=== PATIENT | male | born 1965 | race Hispanic/Latino ===

== ENCOUNTER 2020-11-05 04:58 | Emergency (ER) | payer BC ==
[~2020-11-05] VITALS: Ht 175.3 cm; Wt 90.7 kg
[2020-11-05 05:06] VITALS: BP 148/103
[2020-11-05 06:44] LABS: BASOPHILS % (AUTO) 0.5 % (0.0-5.0); EOSINOPHILS % (AUTO) 3.2 % (0.0-8.0); HEMATOCRIT 41.3 % (42-54); LYMPHOCYTES % (AUTO) 30.3 % (21.0-51.0); MEAN CORPUSCULAR HEMOGLOBIN 32.1 pg (27.0-33.0); MEAN CORPUSCULAR HGB CONC 34.1 g/dL (32.0-36.0); MEAN CORPUSCULAR VOLUME 94.1 fL (79-99); MONOCYTES % (AUTO) 9.5 % (3.0-13.0); NEUTROPHILS % (AUTO) 56.3 % (40.0-77.0); PLATELET COUNT (AUTO) 171 K/uL (130-400); RED BLOOD CELL COUNT(AUTO) 4.39 MIL/uL (4.50-6.20); RED CELL DISTRIBUTION WIDTH 13.2 % (11.0-15.5)
[2020-11-05 06:58] LABS: ALANINE AMINOTRANSFERASE 27 U/L (12-78); ALBUMIN 3.9 g/dL (3.5-5.0); ASPARTATE AMINOTRANSFERASE 12 U/L (10-37); BILIRUBIN,TOTAL 0.9 mg/dL (0.2-1.0); CARBON DIOXIDE 30 mmol/L (21-32); CHLORIDE 107 mmol/L (101-111); CREATININE 1.1 mg/dL (0.5-1.5); GLOMERULAR FILTR. RATE CALC 74 mL/min (>60); GLUCOSE,RANDOM 98 mg/dL (70-105); POTASSIUM 3.8 mmol/L (3.5-5.1); SODIUM SERUM 141 mmol/L (136-145); TOTAL PROTEIN, SERUM 6.9 g/dL (6.0-8.3); UREA NITROGEN, BLOOD 18 mg/dL (7-18); URIC ACID 5.2 mg/dL (2.6-7.2)
[2020-11-05 08:02] LABS: CRP QUANTITATIVE < 2.00 mg/L (0.00-9.0)
[2020-11-05] MEDS ORDERED: NAPR500T6 PO (08:09)
[2020-11-05] MEDS: KETOROLAC 60 MG VIAL (30MG/ML) IM ONE (08:35)
[2020-11-05] MEDS: ACETAMINOPHEN 500 MG TABLET PO ONE (08:36)
[2020-11-05 08:47] VITALS: BP 133/65
== END 2020-11-05 08:54 | disposition home or self-care (01) ==
LOC: EDH 04:58
DX: M17.12 Unilateral primary osteoarthritis, left knee (principal); M76.9 Unspecified enthesopathy, lower limb, excluding foot; Z90.49 Acquired absence of other specified parts of digestive tract
CPT/HCPCS: 36415; 73564; 80053; 84550; 85025; 86140; 96372; 99284; J1885

== ENCOUNTER 2022-03-17 20:30 | Emergency (ER) | payer BC ==
[~2022-03-17] VITALS: Ht 175.3 cm; Wt 90.7 kg
[~2022-03-17 20:30] MED LIST: NAPR500T6 PO
[2022-03-17 21:43] LABS: BASOPHILS % (AUTO) 0.6 % (0.0-5.0); EOSINOPHILS % (AUTO) 3.2 % (0.0-8.0); HEMATOCRIT 42.7 % (42-54); LYMPHOCYTES % (AUTO) 33.3 % (21.0-51.0); MEAN CORPUSCULAR HEMOGLOBIN 32.3 pg (27.0-33.0); MEAN CORPUSCULAR HGB CONC 35.4 g/dL (32.0-36.0); MEAN CORPUSCULAR VOLUME 91.4 fL (79-99); MONOCYTES % (AUTO) 9.7 % (3.0-13.0); NEUTROPHILS % (AUTO) 52.9 % (40.0-77.0); PLATELET COUNT (AUTO) 215 K/uL (130-400); RED BLOOD CELL COUNT(AUTO) 4.67 MIL/uL (4.50-6.20); RED CELL DISTRIBUTION WIDTH 12.6 % (11.0-15.5); WHITE BLOOD COUNT (AUTO) 7.7 K/uL (4.8-10.8)
[2022-03-17 21:55] LABS: CREATININE 1.3 mg/dL (0.5-1.5); POTASSIUM 3.6 mmol/L (3.5-5.1)
[2022-03-17 22:05] LABS: ALBUMIN 4.2 g/dL (3.5-5.0); TOTAL PROTEIN, SERUM 7.7 g/dL (6.0-8.3)
[2022-03-17] MEDS ORDERED: ASPIRIN 81MG CHEW TAB PO ONE (22:30)
[2022-03-17] MEDS ORDERED: NITROGLYCERIN 0.4 MG SL TAB SL PRN (22:30)
[2022-03-18] MEDS ORDERED: 0.9%NACL 1000ML 2,000 ML IV ONE ×2 (00:10→00:30)
[2022-03-18 02:02] VITALS: BP 128/87
[2022-03-18 02:29] LABS: APPEARANCE,URINE CLEAR (CLEAR); BILIRUBIN,URINE NEGATIVE (NEGATIVE); COLOR,URINE LIGHT-YELLOW (YELLOW); GLUCOSE, URINE (UA) NEGATIVE (NEGATIVE); KETONES,URINE NEGATIVE (NEGATIVE); LEUKOCYTE ESTERASE ,URINE NEGATIVE Leu/uL (NEGATIVE); NITRATE,URINE NEGATIVE (NEGATIVE); OCCULT BLOOD,URINE NEGATIVE (NEGATIVE); PH,URINE 5.5 (5.0-8.0); PROTEIN,URINE NEGATIVE (NEGATIVE); UROBILINOGEN,URINE 0.2 mg/dL (0.2-1.0)
[2022-03-18] MEDS ORDERED: ONDANSETRON 4MG TABLET PO PRN (02:30)
[2022-03-18] MEDS ORDERED: ACETAMINOPHEN 325 MG TAB PO PRN (02:30)
[2022-03-18] MEDS ORDERED: MORPHINE 2 MG SYG IVP PRN (02:30)
[2022-03-18] MEDS ORDERED: METOPROLOL TARTRATE 25 MG TAB PO SCH (09:00)
[2022-03-18] MEDS ORDERED: ASPIRIN 81 MG EC TAB PO SCH (09:00)
== END 2022-03-18 03:00 | disposition left against medical advice (07) ==
LOC: EDH 20:30 → EDHIP 03-18 02:16 → UNDOADMOB 03-18 02:16 → EDH 03-18 03:00
DX: I24.9 Acute ischemic heart disease, unspecified (principal); E86.0 Dehydration; I10 Essential (primary) hypertension; Z90.49 Acquired absence of other specified parts of digestive tract; Z88.0 Allergy status to penicillin
CPT/HCPCS: 36415; 71045; 80053; 81003; 83880; 84484; 85025; 85378; 93005; 96360; 96361; J7030